=== PATIENT | female | born 1995 | race Caucasian/White ===

== ENCOUNTER 2019-01-09 23:45 | Emergency (ER) | payer OTHER ==
[2019-01-10 00:21] LABS: APPEARANCE,URINE Clear (CLEAR); BILIRUBIN,URINE Negative (NEGATIVE); COLOR,URINE Dark Yellow (YELLOW); GLUCOSE, URINE (UA) Negative (NEGATIVE); KETONES,URINE Negative (NEGATIVE); LEUKOCYTE ESTERASE ,URINE Large (NEGATIVE); NITRATE,URINE Positive (NEGATIVE); OCCULT BLOOD,URINE Negative (NEGATIVE); PH,URINE 5.5 (5.0-8.0); PROTEIN,URINE Negative (NEGATIVE)
[2019-01-10] MEDS ORDERED: ONDANSETRON ODT 4 MG TAB ONE (00:21)
[2019-01-10] MEDS ORDERED: MORPHINE SULFATE 5 MG/ML VIAL ONE (00:23)
[2019-01-10 00:30] LABS: HCG,QUAL RESULT NEGATIVE (NEGATIVE)
[2019-01-10 00:32] LABS: BACTERIA,URINE Few /HPF (None Seen); RBC,URINE 0-1 /HPF (0-1)
[2019-01-10] MEDS ORDERED: CEFTRIAXONE SODIUM 1 GM ONE (01:22)
[2019-01-10] MEDS ORDERED: LIDOCAINE HCL-MPF 1% 2ML VIAL ONE (01:22)
== END 2019-01-10 01:49 | disposition home or self-care (01) ==
LOC: EDH 23:45
DX: N39.0 Urinary tract infection, site not specified (principal); Z88.8 Allergy status to other drugs, medicaments and biological substances; Z72.0 Tobacco use
CPT/HCPCS: 81001; 81025; 87088; 96372 ×2; 99284; J0696; J2270; J3490

== ENCOUNTER 2019-04-21 11:56 | Emergency (ER) | payer OTHER ==
[2019-04-21] MEDS ORDERED: SODIUM CHLORIDE 0.9% 1000ML 1,000 ML IV ONE (12:15)
[2019-04-21] MEDS ORDERED: METOCLOPRAMIDE 10 MG/2 ML VIAL ONE (12:15)
[2019-04-21 12:22] LABS: BASOPHILS % (AUTO) 0.3 % (0.0-5.0); EOSINOPHILS % (AUTO) 0.4 % (0.0-8.0); HEMATOCRIT 38.6 % (36-48); LYMPHOCYTES % (AUTO) 21.4 % (21.0-51.0); MEAN CORPUSCULAR HEMOGLOBIN 30.4 pg (27.0-33.0); MEAN CORPUSCULAR HGB CONC 34.5 g/dL (32.0-36.0); MEAN CORPUSCULAR VOLUME 88.1 fL (79-99); MONOCYTES % (AUTO) 5.4 % (3.0-13.0); NEUTROPHILS % (AUTO) 71.9 % (40.0-77.0); PLATELET COUNT (AUTO) 225 K/uL (130-400); RED BLOOD CELL COUNT(AUTO) 4.38 MIL/uL (4.00-5.50)
[2019-04-21 12:28] LABS: CREATININE 0.6 mg/dL (0.5-1.5); POTASSIUM 3.6 mmol/L (3.5-5.1)
[2019-04-21 12:33] LABS: ALBUMIN 3.3 g/dL (3.5-5.0); BILIRUBIN,TOTAL 0.5 mg/dL (0.2-1.0); TOTAL PROTEIN, SERUM 7.1 g/dL (6.0-8.3)
[2019-04-21] MEDS ORDERED: CLON0.5T4 PO (22:02)
== END 2019-04-21 13:25 | disposition home or self-care (01) ==
LOC: EDH 11:56
DX: O21.0 Mild hyperemesis gravidarum (principal); Z3A.13 13 weeks gestation of pregnancy; Z87.891 Personal history of nicotine dependence; Z88.8 Allergy status to other drugs, medicaments and biological substances
CPT/HCPCS: 36415; 80053; 85025; 96361; 96374; 99284; J2765; J7030

== ENCOUNTER 2019-04-21 20:05 | Observation (INO) | payer OTHER, MEDICAID ==
[~2019-04-21] VITALS: Ht 172.7 cm; Wt 63.0 kg
[2019-04-21] MEDS ORDERED: PROMETHAZINE HCL 25 MG/ML 1ML AMPULE IM PRN (20:30)
[2019-04-21] MEDS ORDERED: ONDANSETRON 4 MG TABLET PO PRN (20:30)
[2019-04-21 21:00] VITALS: BP 106/61
[2019-04-21] MEDS ORDERED: PANTOPRAZOLE SODIUM 40 MG TABLET.DR PO SCH (21:00)
--- NOTE | 2019-04-21 21:00 | NUR ---
admitted Assisted patient to [facility]. Assisted to BR to change. Assisted to bed. Siderail up and bed down. Call bed in raech. Instructed on use. Instructed on plan of care. emesis basin given. IV start to Rt wrist. LR infusing @ 150cc/hr.
[2019-04-21] MEDS ORDERED: ACETAMINOPHEN 325 MG TAB PO PRN (21:15)
[2019-04-21] MEDS ORDERED: ACETAMINOPHEN 325 MG TAB ONE (21:37)
[2019-04-21] MEDS: LACTATED RINGERS 1000ML 1,000 ML IV PRN (21:42)
[2019-04-21] MEDS ORDERED: CLON0.5T4 PO (22:02)
[2019-04-21] MEDS ORDERED: PANTOPRAZOLE SODIUM 40 MG TABLET.DR ONE (22:14)
[2019-04-21 22:47] LABS: AMPHET/METH SCREEN,URINE NEGATIVE (NEGATIVE); BARBITURATE SCREEN, URINE NEGATIVE (NEGATIVE); BENZODIAZEPINES SCREEN,URINE NEGATIVE (NEGATIVE); CANNABINOID SCREEN,URINE NEGATIVE (NEGATIVE); COCAINE SCREEN,URINE NEGATIVE (NEGATIVE); OPIATE SCREEN,URINE NEGATIVE (NEGATIVE); PHENCYCLIDINE SCREEN,URINE NEGATIVE (NEGATIVE)
[2019-04-21 22:55] VITALS: BP 100/58
[2019-04-22] MEDS: LACTATED RINGERS 1000ML 1,000 ML IV PRN ×2 (00:55→07:42)
[2019-04-22 03:00] VITALS: BP 80/45
[2019-04-22 08:25] VITALS: BP 90/66
[2019-04-22] MEDS ORDERED: PANTOPRAZOLE 40 MG/VIAL IVP SCH (09:00)
[2019-04-22] MEDS ORDERED: PANTOPRAZOLE SODIUM 40 MG TABLET.DR PO SCH (09:00)
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
[2019-04-22 12:00] VITALS: BP 90/59
[2019-04-22 16:00] VITALS: BP 96/72
== END 2019-04-22 17:00 | disposition home or self-care (01) ==
LOC: WSH 20:27 → INTOOBSV 20:27
PROVIDERS: ADMIT Obstetrics & Gynecology; ATTEND Obstetrics & Gynecology
DX: O21.0 Mild hyperemesis gravidarum (principal); Z3A.13 13 weeks gestation of pregnancy
CPT/HCPCS: 36415; 80053; 80305; 85025; 96361 ×3; 96372; 96374; C9113; G0378 ×20; J2550; J2765; J7030; J7120 ×3

== ENCOUNTER 2019-07-11 23:02 | Observation (INO) | payer OTHER, MEDICAID ==
[~2019-07-11] VITALS: Ht 172.7 cm; Wt 67.6 kg
[~2019-07-11 23:02] MED LIST: CLON0.5T4 PO
[2019-07-11] MEDS ORDERED: PREN1TAB80 PO (23:17)
[2019-07-12 00:03] LABS: APPEARANCE,URINE Cloudy (CLEAR); BILIRUBIN,URINE Negative (NEGATIVE); COLOR,URINE Yellow (YELLOW); GLUCOSE, URINE (UA) Negative (NEGATIVE); KETONES,URINE Negative (NEGATIVE); LEUKOCYTE ESTERASE ,URINE Trace (NEGATIVE); NITRATE,URINE Negative (NEGATIVE); OCCULT BLOOD,URINE Negative (NEGATIVE); PH,URINE 5.5 (5.0-8.0); PROTEIN,URINE Trace mg/dL (NEGATIVE)
[2019-07-12 00:09] LABS: RBC,URINE None Seen /HPF (0-1)
[2019-07-12 00:10] LABS: AMPHET/METH SCREEN,URINE NEGATIVE (NEGATIVE); BACTERIA,URINE Moderate /HPF (None Seen); BARBITURATE SCREEN, URINE NEGATIVE (NEGATIVE); BENZODIAZEPINES SCREEN,URINE POSITIVE (NEGATIVE); CANNABINOID SCREEN,URINE POSITIVE (NEGATIVE); COCAINE SCREEN,URINE NEGATIVE (NEGATIVE); OPIATE SCREEN,URINE NEGATIVE (NEGATIVE); PHENCYCLIDINE SCREEN,URINE NEGATIVE (NEGATIVE); SQUAMOUS EPITHELIAL CELL,UR Moderate /HPF (0-2)
[2019-07-12] MEDS ORDERED: CEFTRIAXONE SODIUM 1 GM IVP ONE (00:30)
[2019-07-12] MEDS ORDERED: LACTATED RINGERS 1000ML IV ONE (00:30)
[2019-07-12] MEDS ORDERED: LACTATED RINGERS 1000ML 1,000 ML IV ONE (00:42)
[2019-07-12] MEDS ORDERED: CEFTRIAXONE SODIUM 1 GM ONE (00:43)
== END 2019-07-12 02:25 | disposition home or self-care (01) ==
LOC: EDH 23:02 → LDH 23:03
PROVIDERS: ADMIT Obstetrics & Gynecology; ATTEND Obstetrics & Gynecology
DX: O42.912 Preterm premature rupture of membranes, unspecified as to length of time between rupture and onset of labor, second trimester (principal); O36.8120 Decreased fetal movements, second trimester, not applicable or unspecified; R10.30 Lower abdominal pain, unspecified; Z3A.24 24 weeks gestation of pregnancy
CPT/HCPCS: 80305; 81001; 87088; 99284; G0378 ×3; J0696; J7120 ×2; 96360

== ENCOUNTER 2019-10-18 11:32 | Observation (INO) | payer OTHER, MEDICAID ==
[~2019-10-18] VITALS: Ht 172.7 cm; Wt 79.4 kg
[~2019-10-18 11:32] MED LIST changes: +PREN1TAB80 PO
[2019-10-18 12:19] LABS: APPEARANCE,URINE Clear (CLEAR); BILIRUBIN,URINE Negative (NEGATIVE); COLOR,URINE Yellow (YELLOW); GLUCOSE, URINE (UA) Negative (NEGATIVE); KETONES,URINE Negative (NEGATIVE); LEUKOCYTE ESTERASE ,URINE Trace (NEGATIVE); NITRATE,URINE Negative (NEGATIVE); OCCULT BLOOD,URINE Moderate (NEGATIVE); PROTEIN,URINE Negative (NEGATIVE)
[2019-10-18 12:21] VITALS: BP 95/54
[2019-10-18 12:34] LABS: BACTERIA,URINE Moderate /HPF (None Seen); RBC,URINE 0-1 /HPF (0-1); SQUAMOUS EPITHELIAL CELL,UR Moderate /HPF (0-2)
[2019-10-18] MEDS ORDERED: LACTATED RINGERS 1000ML 1,000 ML IV ONE (13:13)
[2019-10-18] MEDS ORDERED: LACTATED RINGERS 1000ML 1,000 ML IV SCH (13:15)
[2019-10-18] MEDS ORDERED: TERBUTALINE SULFATE VIAL 1MG/ML SQ ONE (14:09)
[2019-10-18] MEDS ORDERED: TERBUTALINE SULFATE VIAL 1MG/ML SQ PRN (14:15)
[2019-10-20] MEDS ORDERED: PREN1TAB80 PO (00:11)
== END 2019-10-18 15:55 | disposition home or self-care (01) ==
LOC: EDH 11:32 → LDH 11:55
PROVIDERS: ADMIT Obstetrics & Gynecology; ATTEND Obstetrics & Gynecology
DX: O62.9 Abnormality of forces of labor, unspecified (principal); O42.92 Full-term premature rupture of membranes, unspecified as to length of time between rupture and onset of labor; Z3A.39 39 weeks gestation of pregnancy
CPT/HCPCS: 81001; 87088; 96360; 96361; 99284; G0378 ×3; J3105; J7120 ×3

== ENCOUNTER 2019-10-19 22:53 | Inpatient (IN) | payer OTHER, MEDICAID ==
[~2019-10-19] VITALS: Ht 172.7 cm; Wt 77.6 kg
[2019-10-19 23:08] VITALS: BP 119/76
[2019-10-19 23:40] LABS: APPEARANCE,URINE Clear (CLEAR); BILIRUBIN,URINE Negative (NEGATIVE); COLOR,URINE Yellow (YELLOW); GLUCOSE, URINE (UA) Negative (NEGATIVE); KETONES,URINE 40 mg/dL (NEGATIVE); LEUKOCYTE ESTERASE ,URINE Trace (NEGATIVE); NITRATE,URINE Negative (NEGATIVE); OCCULT BLOOD,URINE Nonhemolyzed Trace (NEGATIVE); PH,URINE 5.5 (5.0-8.0); PROTEIN,URINE Negative (NEGATIVE)
[2019-10-19] MEDS: LACTATED RINGERS 1000ML 1,000 ML IV PRN (23:45)
[2019-10-19 23:46] LABS: BACTERIA,URINE Few /HPF (None Seen); MUCUS,URINE Few LPF (None Seen); SQUAMOUS EPITHELIAL CELL,UR Moderate /HPF (0-2)
[2019-10-19 23:47] LABS: AMPHET/METH SCREEN,URINE NEGATIVE (NEGATIVE); BARBITURATE SCREEN, URINE NEGATIVE (NEGATIVE); BENZODIAZEPINES SCREEN,URINE NEGATIVE (NEGATIVE); CANNABINOID SCREEN,URINE NEGATIVE (NEGATIVE); COCAINE SCREEN,URINE NEGATIVE (NEGATIVE); OPIATE SCREEN,URINE NEGATIVE (NEGATIVE); PHENCYCLIDINE SCREEN,URINE NEGATIVE (NEGATIVE)
[2019-10-20] MEDS ORDERED: PREN1TAB80 PO ×2 (00:11)
[2019-10-20] MEDS: LACTATED RINGERS 1000ML 1,000 ML IV PRN ×2 (00:36→03:30)
[2019-10-20] MEDS ORDERED: LACTATED RINGERS 1000ML 1,000 ML IV PRN (00:55)
[2019-10-20] MEDS ORDERED: EPHEDRINE SULFATE 50 MG/ML AMPULE IVP PRN (01:15)
[2019-10-20] MEDS ORDERED: LACTATED RINGERS 500 ML 500 ML IV PRN (01:15)
[2019-10-20] MEDS ORDERED: NALOXONE HCL 0.4 MG/1 ML ML IV PRN (01:15)
[2019-10-20 01:18] LABS: HEMATOCRIT 39.7 % (36-48); MEAN CORPUSCULAR HEMOGLOBIN 29.4 pg (27.0-33.0); MEAN CORPUSCULAR HGB CONC 33.8 g/dL (32.0-36.0); MEAN CORPUSCULAR VOLUME 87.1 fL (79-99); RED BLOOD CELL COUNT(AUTO) 4.56 MIL/uL (4.00-5.50); RED CELL DISTRIBUTION WIDTH 12.4 % (11.0-15.5); WHITE BLOOD COUNT (AUTO) 11.7 K/uL (4.8-10.8)
[2019-10-20] MEDS ORDERED: FENTANYL CITRATE PF 50 MCG/1 ML 2ML VIAL ONE (01:42)
[2019-10-20] MEDS: ROPIVACAINE 0.2% 100ML VIAL 100 ML EP SCH ×2 (02:00→19:05)
[2019-10-20] MEDS ORDERED: OXYTOCIN-LR 20 UNITS/1000 ML 1,000 ML IV ONE ×2 (05:20→17:27)
[2019-10-20] MEDS ORDERED: OXYTOCIN 10 USP UNITS/ML 20 UNIT in LACTATED RINGERS 1000ML 1,000 ML IV SCH (06:00)
[2019-10-20] MEDS ORDERED: LIDOCAINE HCL 1% 20 ML VIAL ONE (17:21)
[2019-10-20] MEDS ORDERED: METHYLERGONOVINE MALEATE 0.2 MG/1 ML ML ONE (17:21)
[2019-10-20] MEDS: OXYTOCIN-LR 20 UNITS/1000 ML 1,000 ML IV SCH ×2 (18:53→21:45)
[2019-10-20] MEDS ORDERED: ACETAMINOPHEN 325 MG TAB PO PRN (19:15)
[2019-10-20] MEDS ORDERED: MEASLES/MUMPS/RUBELLA VACCINE, LIVE 0.5 ML/VIAL SQ PRN (19:15)
[2019-10-20] MEDS ORDERED: BENZOCAINE/LANOLIN/ALOE VERA 60 ML AEROSOL TP PRN (19:15)
[2019-10-20] MEDS ORDERED: DIPH,PERTUSS(ACELL),TET VAC/PF 0.5 ML VIAL IM PRN (19:15)
[2019-10-20] MEDS ORDERED: ACETAMINOPHEN-CODEINE 300/30MG TAB PO PRN (19:15)
[2019-10-20] MEDS ORDERED: WITCH HAZEL 1 PAD TP PRN (19:15)
[2019-10-20] MEDS ORDERED: LANOLIN 30GM OINTMENT TP PRN (19:15)
[2019-10-20] MEDS: DOCUSATE SODIUM 100 MG CAP PO SCH (19:54)
[2019-10-20] MEDS: IBUPROFEN 600 MG TABLET PO PRN (19:55)
[2019-10-20 21:53] VITALS: BP 126/74
--- NOTE | 2019-10-20 23:13 | NUR ---
Discharge care EXITCARE instructions given & reviewing with pt; all questions answered, pt restates information on s/s to report to provider or to return to emergency room for evaluation. Instructing & reinforcing teaching on depression s/s, encouraging to report to md for evaluation if experiencing s/s depression/anxiety. Reinforcing teaching on normal vaginal bleeding that subsides with each day; instructing to report increase vaginal bleeding, blood clots, lower abd cramping that does not subside with medications or foul smelling vaginal discharge. Instructing to avoid sexual intercourse while bleeding due to increase risk for infection. Pt voices understanding & agrees to instructions. Explaining TDAP vaccine & reading handout; Pt agrees to vaccine. Addendum: 10/20/19 at 2322 by JASMYN HAND RN RN Amended: Links added.
[2019-10-21] VITALS (7 sets, daily range): BP systolic 92–119; BP diastolic 51–76
--- NOTE | 2019-10-21 00:30 | NUR ---
Pt reports discomfort to perineum, noted increased swelling to left lower labia majora, palpates soft with slight redness noted. Pt requesting tylenol #3 tablets for pain, rating discomfort at 5 of 10. Addendum: 10/21/19 at 0123 by JASMYN HAND RN RN Amended: Links added.
--- NOTE | 2019-10-21 00:35 | NUR ---
Explaining tylenol #3 tab for pain desired effects & possible common side effects, pt voices understanding, states "i have taken it before".
--- NOTE | 2019-10-21 01:37 | NUR ---
Assisting to bathroom, pt reports perineal soreness remains "but is less", offering to reapply senait ice pack after voiding, pt agrees. Addendum: 10/21/19 at 0138 by JASMYN HAND RN RN Amended: Links added.
--- NOTE | 2019-10-21 01:39 | NUR ---
Explaining normal changes after , perineal pain & swelling common after vaginal delivery; informing of s/s of hematoma, pt voices understanding, agrees to report increase in perineal pressure or pain. Addendum: 10/21/19 at 0204 by JASMYN HAND RN RN Amended: Links added.
[2019-10-21] MEDS: IBUPROFEN 600 MG TABLET PO PRN ×3 (02:20→18:19)
--- NOTE | 2019-10-21 02:29 | NUR ---
Pt denies pain or discomfort at present, now. States "the ice pack is not cold anymore", agrees to removal. Senait ice pack removed, edema to labia majora decreased. Encouraging pt to report discomfort and will replace senait ice pack, pt agrees to plan. Addendum: 10/21/19 at 0232 by JASMYN HAND RN RN Amended: Links added.
--- NOTE | 2019-10-21 04:30 | NUR ---
Pt reports tolerable discomfort to perineum, denies cramping at present. Reinforcing teaching on increasing fluid intake & to continue freq urination to minimize uterine cramping; Instructing to report any concerns or problems, pt voices understanding & agrees to plan.
[2019-10-21 07:13] LABS: HEMATOCRIT 37.8 % (36-48); MEAN CORPUSCULAR HEMOGLOBIN 29.2 pg (27.0-33.0); MEAN CORPUSCULAR HGB CONC 33.3 g/dL (32.0-36.0); MEAN CORPUSCULAR VOLUME 87.7 fL (79-99); RED BLOOD CELL COUNT(AUTO) 4.31 MIL/uL (4.00-5.50); RED CELL DISTRIBUTION WIDTH 12.3 % (11.0-15.5); WHITE BLOOD COUNT (AUTO) 13.2 K/uL (4.8-10.8)
--- NOTE | 2019-10-21 07:35 | NUR ---
PATIENT'S LABIA APPEARS SWOLLEN, LEFT SIDE APPEARS MORE SWOLLEN THAN THE RIGHT, SOFT TO THE TOUCH. PATIENT STATES SHE DOES NOT FEEL PAIN AT THIS TIME. TUCKS PADS APPLIED TO THE SITE. INSTRUCTED PATIENT ON HOW TO USE TUCKS PADS, PATIENT VERBALIZED UNDERSTANDING.
[2019-10-21] MEDS: DOCUSATE SODIUM 100 MG CAP PO SCH ×2 (08:57→20:45)
--- NOTE | 2019-10-21 09:45 | NUR ---
SS Consult for HX of depression, anxiety & Previous +UDS GOLDEN met with pt. who is calm, cooperative and reports happy as she is holding her baby. Pt. is single and resides with SHAWN Davis and his family. 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 Pt. reported a strong support system among her parents, sister, FOB and his family; all with whom she credits as being helpful upon discharge. Pt. reported a history of anxiety and depression since 5th grade and was under the services of psychiatrist and therapist/counselor for years until she completed her treatment. Pt. stated that she was taught relaxation techniques and utilizes them as needed. Pt. admitted to using anti-anxiety meds and marijuana in June and stated that she has not used since. SW educated pt. on risks of using illicit substances including mandated reporting to CPS by anyone in the community who suspects that she is using; pt. verbalized an understanding. Pt. denied any use of etoh. Pt. denied any smokers in the home. Pt. denied any current signs/symptoms of depression or anxiety. Pt. denied any thoughts of self harm and/or harm to others. Education provided on PPD/signs, symptoms and pt. voiced she was educated by nurse as well. Benefits in place include [employer] Insurance under her parents;carseat in place. All utilities reportedly connected in the home and family provides transportation. Pt. was provided with list of community resources/hotlines for Anxiety, Depression,PPD; pt. reported she also has contact info. Pt. voiced no SS needs or concerns. Pt. and BG to be d/c'd home when medically cleared. Addendum: 10/21/19 at 1054 by BROCK BEY Amended: Links added.
--- NOTE | 2019-10-21 10:15 | NUR ---
PATIENT RESTING WITH EYES CLOSED, CHEST RISING AND FALLING IN NORMAL PATTERN. BABY NOT PRESENT IN ROOM AT THIS TIME.
--- NOTE | 2019-10-21 14:35 | NUR ---
ASSISTED PATIENT IN LATCHING BABY TO RIGHT BREAST SUCCESSFULLY. CALL LIGHT LEFT IN REACH, ADVISED PATIENT TO CALL WITH ANY NEEDS OR CONCERNS.
[2019-10-21 20:08] LABS: HEPATITIS Bs ANTIGEN SCREEN P Negative (Negative)
[2019-10-22 03:00] VITALS: BP 98/60
[2019-10-22] MEDS: IBUPROFEN 600 MG TABLET PO PRN (06:27)
[2019-10-22 07:29] VITALS: BP 103/57
[2019-10-22] MEDS: DOCUSATE SODIUM 100 MG CAP PO SCH (08:58)
--- NOTE | 2019-10-22 12:55 | NUR ---
PATIENT LEFT UNIT VIA WHEELCHAIR WITH BABY IN ARMS. PERSONAL VEHICLE USED FOR TRANSPORTATION ACCOMPANIED BY , BABY SECURE IN CARSEAT. NO COMPLAINTS OR CONCERNS ADDRESSED FROM PATIENT ON DISCHARGE.
== END 2019-10-22 12:55 | disposition home or self-care (01) | DRG 806 ==
LOC: EDH 22:53 → OBSVTOIN 23:07 → LDH 23:07 → WSH 10-20 21:35
PROVIDERS: ADMIT Obstetrics & Gynecology; ATTEND Obstetrics & Gynecology
PROC: 10E0XZZ Delivery of Products of Conception, External Approach (ICD-10-PCS; principal; 2019-10-20)
PROC: 0UQMXZZ Repair Vulva, External Approach (ICD-10-PCS; 2019-10-20)
PROC: 0UQGXZZ Repair Vagina, External Approach (ICD-10-PCS; 2019-10-20)
PROC: 3E0R3BZ Introduction of Anesthetic Agent into Spinal Canal, Percutaneous Approach (ICD-10-PCS; 2019-10-20)
PROC: 00HU33Z Insertion of Infusion Device into Spinal Canal, Percutaneous Approach (ICD-10-PCS; 2019-10-20)
PROC: 3E0234Z Introduction of Serum, Toxoid and Vaccine into Muscle, Percutaneous Approach (ICD-10-PCS; 2019-10-20)
PROC: 3E0134Z Introduction of Serum, Toxoid and Vaccine into Subcutaneous Tissue, Percutaneous Approach (ICD-10-PCS; 2019-10-20)
DX: O77.0 Labor and delivery complicated by meconium in amniotic fluid (principal); O71.4 Obstetric high vaginal laceration alone; Z37.0 Single live birth; O69.81X0 Labor and delivery complicated by cord around neck, without compression, not applicable or unspecified; O99.62 Diseases of the digestive system complicating childbirth; K21.9 Gastro-esophageal reflux disease without esophagitis; O99.52 Diseases of the respiratory system complicating childbirth; J45.909 Unspecified asthma, uncomplicated; O71.82 Other specified trauma to perineum and vulva; Z3A.39 39 weeks gestation of pregnancy; Z23 Encounter for immunization
CPT/HCPCS: 36415; 76815; 80305; 81001; 85027; 86592; 86850; 86900; 86901; 87340; 90715; A4314; G0378; J2210; J2590; J2795; J3010; J7120

== ENCOUNTER 2020-01-20 20:13 | Emergency (ER) | payer OTHER, MEDICAID ==
[2020-01-20] MEDS ORDERED: ACETAMINOPHEN 325 MG TAB ONE (20:47)
[2020-01-20 20:59] LABS: BASOPHILS % (AUTO) 0.2 % (0.0-5.0); EOSINOPHILS % (AUTO) 0.2 % (0.0-8.0); HEMATOCRIT 42.6 % (36-48); LYMPHOCYTES % (AUTO) 15.2 % (21.0-51.0); MEAN CORPUSCULAR HEMOGLOBIN 29.1 pg (27.0-33.0); MEAN CORPUSCULAR HGB CONC 33.8 g/dL (32.0-36.0); MEAN CORPUSCULAR VOLUME 86.1 fL (79-99); MONOCYTES % (AUTO) 5.3 % (3.0-13.0); NEUTROPHILS % (AUTO) 78.9 % (40.0-77.0); PLATELET COUNT (AUTO) 250 K/uL (130-400); RED BLOOD CELL COUNT(AUTO) 4.95 MIL/uL (4.00-5.50); RED CELL DISTRIBUTION WIDTH 12.4 % (11.0-15.5); WHITE BLOOD COUNT (AUTO) 9.9 K/uL (4.8-10.8)
[2020-01-20] MEDS ORDERED: LORAZEPAM 0.5 MG TABLET ONE (20:59)
[2020-01-20 21:08] LABS: CREATININE 0.8 mg/dL (0.5-1.5); POTASSIUM 3.5 mmol/L (3.5-5.1)
[2020-01-20 21:14] LABS: ALBUMIN 4.3 g/dL (3.5-5.0); BILIRUBIN,TOTAL 0.5 mg/dL (0.2-1.0); TOTAL PROTEIN, SERUM 8.3 g/dL (6.0-8.3)
[2020-01-20 21:16] LABS: APPEARANCE,URINE CLOUDY (CLEAR); BILIRUBIN,URINE SMALL (NEGATIVE); COLOR,URINE YELLOW (YELLOW); GLUCOSE, URINE (UA) NEGATIVE (NEGATIVE); KETONES,URINE 15 mg/dL (NEGATIVE); LEUKOCYTE ESTERASE ,URINE SMALL (NEGATIVE); NITRATE,URINE NEGATIVE (NEGATIVE); OCCULT BLOOD,URINE LARGE (NEGATIVE); PROTEIN,URINE 100 mg/dL (NEGATIVE); UROBILINOGEN,URINE 0.2 mg/dL (0.2-1.0)
[2020-01-20] MEDS ORDERED: ONDANSETRON HCL 4 MG/2 ML VIAL ONE (21:23)
[2020-01-20] MEDS ORDERED: LORAZEPAM 2 MG/ML 1 ML VIAL ONE (21:24)
[2020-01-20 21:25] LABS: AMPHET/METH SCREEN,URINE NEGATIVE (NEGATIVE); BACTERIA,URINE Few /HPF (None Seen); BARBITURATE SCREEN, URINE NEGATIVE (NEGATIVE); BENZODIAZEPINES SCREEN,URINE POSITIVE (NEGATIVE); CANNABINOID SCREEN,URINE POSITIVE (NEGATIVE); COCAINE SCREEN,URINE NEGATIVE (NEGATIVE); OPIATE SCREEN,URINE NEGATIVE (NEGATIVE); PHENCYCLIDINE SCREEN,URINE NEGATIVE (NEGATIVE); SQUAMOUS EPITHELIAL CELL,UR Moderate /HPF (0-2)
[2020-01-20 21:27] LABS: WBC,URINE 26-50 /HPF (0-1)
[2020-01-20 21:28] LABS: TRANSITIONAL EPI CELLS,URINE Rare /HPF (None Seen)
[2020-01-20 21:50] LABS: HCG,QUAL RESULT NEGATIVE (NEGATIVE)
== END 2020-01-20 23:32 | disposition home or self-care (01) ==
LOC: EDH 20:13
DX: R56.9 Unspecified convulsions (principal); R55 Syncope and collapse; N39.0 Urinary tract infection, site not specified; F41.9 Anxiety disorder, unspecified; Z88.8 Allergy status to other drugs, medicaments and biological substances
CPT/HCPCS: 36415; 70450; 72125; 80053; 80305; 81001; 81025; 82550; 82948; 84484; 85025; 87077; 87088; 87186; 93005; 96361; 96372; 96374; 99285; J2060; J2405

== ENCOUNTER 2022-08-29 12:48 | Emergency (ER) | payer BC, MEDICAID ==
[~2022-08-29] VITALS: Ht 172.7 cm; Wt 68.0 kg
[2022-08-29 12:50] VITALS: BP 116/56
[2022-08-29] MEDS ORDERED: LORA10TA7 PO (13:40)
[2022-08-29] MEDS ORDERED: IBUP-2070 PO (13:40)
[2022-08-29] MEDS ORDERED: IBUPROFEN 600 MG TABLET PO ONE (14:00)
== END 2022-08-29 14:04 | disposition home or self-care (01) ==
LOC: EDH 12:48
DX: J02.8 Acute pharyngitis due to other specified organisms (principal); B97.89 Other viral agents as the cause of diseases classified elsewhere; F41.9 Anxiety disorder, unspecified; J45.909 Unspecified asthma, uncomplicated; F32.A Depression, unspecified; Z20.822 Contact with and (suspected) exposure to COVID-19
CPT/HCPCS: 99283; 87635; 87880; 87804 ×2; C9803

== ENCOUNTER 2023-05-02 19:50 | Emergency (ER) | payer BC, MEDICAID ==
[~2023-05-02] VITALS: Ht 172.7 cm; Wt 73.0 kg
[~2023-05-02 19:50] MED LIST changes: +IBUP-2070 PO; +LORA10TA7 PO
[2023-05-02 20:31] LABS: RAPID GROUP A STREP negative (NEGATIVE)
[2023-05-02 20:36] LABS: SARS-CoV-2, RNA, NAAT NEGATIVE SARS CoV-2 (NEGATIVE)
[2023-05-02 20:39] LABS: APPEARANCE,URINE CLOUDY (CLEAR); BILIRUBIN,URINE NEGATIVE (NEGATIVE); COLOR,URINE YELLOW (YELLOW); GLUCOSE, URINE (UA) NEGATIVE (NEGATIVE); KETONES,URINE >=80 mg/dL (NEGATIVE); LEUKOCYTE ESTERASE ,URINE NEGATIVE Leu/uL (NEGATIVE); NITRATE,URINE NEGATIVE (NEGATIVE); OCCULT BLOOD,URINE NEGATIVE (NEGATIVE); PROTEIN,URINE 50 mg/dL (NEGATIVE); UROBILINOGEN,URINE 0.2 mg/dL (0.2-1.0)
[2023-05-02 20:41] LABS: ADD UA MICROSCOPIC YES; INFLUENZA TYPE A Negative For Type A (NEGATIVE); INFLUENZA TYPE B Negative For Type B (NEGATIVE)
[2023-05-02 20:43] LABS: BACTERIA,URINE FEW /HPF (None Seen); MUCUS,URINE FEW LPF (None Seen); SQUAMOUS EPITHELIAL CELL,UR FEW /HPF (0-2)
[2023-05-02] MEDS: 0.9%NACL 1000ML 1,000 ML IV ONE (20:45)
[2023-05-02] MEDS: ONDANSETRON 4MG INJ IVP ONE (20:45)
[2023-05-02 21:16] LABS: BASOPHILS # (AUTO) 0.03 K/uL (0.00-0.20); BASOPHILS % (AUTO) 0.3 % (0.0-5.0); EOSINOPHILS # (AUTO) 0.04 K/uL (0.00-0.70); EOSINOPHILS % (AUTO) 0.4 % (0.0-8.0); HEMATOCRIT 45.8 % (36-48); IMMATURE GRANULOCYTE ABSOLUTE 0.03 K/uL (0-1); LYMPHOCYTES # (AUTO) 1.8 K/uL (1.0-4.8); LYMPHOCYTES % (AUTO) 18.1 % (21.0-51.0); MEAN CORPUSCULAR HEMOGLOBIN 30.1 pg (27.0-33.0); MEAN CORPUSCULAR HGB CONC 34.1 g/dL (32.0-36.0); MEAN CORPUSCULAR VOLUME 88.2 fL (79-99); MONOCYTES # (AUTO) 0.6 K/uL (0.1-1.0); MONOCYTES % (AUTO) 5.9 % (3.0-13.0); NEUTROPHILS # (AUTO) 7.4 K/uL (1.8-7.7); PLATELET COUNT (AUTO) 239 K/uL (130-400); RED BLOOD CELL COUNT(AUTO) 5.19 MIL/uL (4.00-5.50); RED CELL DISTRIBUTION WIDTH 11.7 % (11.0-15.5); WHITE BLOOD COUNT (AUTO) 9.9 K/uL (4.8-10.8)
[2023-05-02] MEDS: FAMOTIDINE 20MG VIAL IV ONE (21:28)
[2023-05-02 21:31] LABS: CREATININE 0.8 mg/dL (0.5-1.5); POTASSIUM 3.4 mmol/L (3.5-5.1)
[2023-05-02 21:36] LABS: ALBUMIN 4.2 g/dL (3.5-5.0); BILIRUBIN,TOTAL 0.7 mg/dL (0.2-1.0); TOTAL PROTEIN, SERUM 8.7 g/dL (6.0-8.3)
[2023-05-02 22:12] VITALS: BP 117/77; PULSE 75; RESP 17; O2SAT 96
[2023-05-02] MEDS ORDERED: ONDA4TAB10 PO (22:16)
[2023-05-02] MEDS ORDERED: FAMO-136 PO (22:16)
== END 2023-05-02 22:32 | disposition home or self-care (01) ==
LOC: EDH 19:50
DX: K52.9 Noninfective gastroenteritis and colitis, unspecified (principal); R11.2 Nausea with vomiting, unspecified; F41.9 Anxiety disorder, unspecified; J45.909 Unspecified asthma, uncomplicated; F32.A Depression, unspecified; Z20.822 Contact with and (suspected) exposure to COVID-19
CPT/HCPCS: 99284; 96374; 71045; 87635; 96361; 96375; 80053; 83690; 85025; 87880; 87804 ×2; 81001; 81025; 36415; J3490; J7030; J2405

== ENCOUNTER 2023-12-18 00:33 | Emergency (ER) | payer BC, MEDICAID ==
[~2023-12-18] VITALS: Ht 170.2 cm; Wt 74.4 kg
[~2023-12-18 00:33] MED LIST changes: +FAMO-136 PO; +ONDA-243 PO
[2023-12-18 01:45] VITALS: BP 95/42; PULSE 70; RESP 16; TEMP 97.8; O2SAT 97
[2023-12-18] MEDS ORDERED: AMOX-426 PO (01:45)
== END 2023-12-18 02:06 | disposition home or self-care (01) ==
LOC: EDH 00:33
DX: K04.7 Periapical abscess without sinus (principal)
CPT/HCPCS: 41800

== ENCOUNTER 2024-07-29 11:59 | Emergency (ER) | payer BC ==
[~2024-07-29] VITALS: Ht 170.2 cm; Wt 79.4 kg
[~2024-07-29 11:59] MED LIST changes: +AMOX-426 PO
--- NOTE | 2024-07-29 13:08 | ERN ---
General Chief Complaint: Headache Stated Complaint: MIGRAINE, N/V Time Seen by MD: 12:08 Source: patient History of Present Illness Initial Comments PATIENT IS A 28-YEAR-OLD FEMALE COMING IN WITH MULTIPLE COMPLAINTS. PATIENT STATES THAT SHE HAS BEEN HAVING HEADACHES NAUSEOUSNESS ABDOMINAL PAIN FOR A COUPLE OF DAYS. PATIENT ALSO STATES THAT SHE HAS A HISTORY OF ANXIETY AND FEELS LIKE IF SHE IS A VERY ANXIOUS THE MOMENT. Allergies: Coded Allergies: quetiapine (Unverified Allergy, Unknown, 01/10/19) Home Meds Active Scripts Amoxicillin/Potassium Clav (Augmentin 500-125 Tablet) 500 Mg-125 Mg Tablet, 1 EACH PO BID for 10 Days, #20 TAB Prov:MARTHA CERRATO DO 12/18/23 Ondansetron (Ondansetron Odt) 4 Mg Tab.rapdis, 4 MG PO Q12H for nausea, #6 TAB Prov:AGUSTINA GHOSH PAC 05/02/23 Famotidine (Pepcid) 20 Mg Tablet, 20 MG PO BID, #30 TAB Prov:AGUSTINA GHOSH PAC 05/02/23 Loratadine (Loratadine) 10 Mg Tablet, 10 MG PO DAILY for 7 Days, #7 TAB Prov:ANA BORJA V [facility] 08/29/22 Ibuprofen (Ibuprofen) 600 Mg Tablet, 600 MG PO Q6H PRN for PAIN, #30 TAB Prov:ANA BORJA V [facility] 08/29/22 Reported Medications Vits W-Ca,Fe,FA(<1Mg) ( Vitamins) 1 Each Tablet, 1 EACH PO DAILY, TAB 10/20/19 Vits W-Ca,Fe,FA(<1Mg) ( Vitamins) 1 Each Tablet, 1 EACH PO DAILY, TAB 07/11/19 Clonazepam (Clonazepam) Unknown Strength Tablet, PO Q4HPRN PRN for ANXIETY/AGITATION, TAB 04/21/19 Past Medical History Past Medical History: Anxiety, Migraines Past Surgical History: None Surgical History Other: IUD ROS Dictation CONSTITUTIONAL: NO CHILLS, NO FEVER, NO WEAKNESS, NO DIAPHORESIS, NO MALAISE. HEAD/FACE: NO SIGNS OF TRAUMA. EENT: NO EYE PAIN, NO BLURRED VISION, NO TEARING, NO DOUBLE VISION, NO EAR PAIN, NO EAR DISCHARGE, NO NOSE PAIN, NO NASAL CONGESTION, NO THROAT PAIN, NO THROAT SWELLING, NO MOUTH PAIN. RESPIRATORY: NO COUGH, NO ORTHOPNEA, NO SOB, NO STRIDOR, NO WHEEZING. CARDIOVASCULAR: NO CHEST PAIN, NO EDEMA, NO PALPITATIONS, NO SYNCOPE. GASTROINTESTINAL/ABDOMINAL: NO ABDOMINAL PAIN, NO CONSTIPATION, NO DIARRHEA, NO NAUSEA, NO VOMITING. GENITOURINARY: NO ABNORMAL DISCHARGE, NO DYSURIA, NO FREQUENT URINATION, NO HEMATURIA. NO COMPLAINTS OF PAIN IN THE GENITALS. MUSCULOSKELETAL: NO BACK PAIN, NO GOUT, NO JOINT PAIN, NO JOINT SWELLING, NO MUSCLE PAIN, NO MUSCLE STIFFNESS, NO NECK PAIN. INTEGUMENTARY: NO CHANGE IN COLOR, NO CHANGE IN HAIR/NAILS, NO DRYNESS, NO LESION, NO LUMPS, NO RASH. NEUROLOGICAL/PSYCH: NO ANXIETY, NOT DEPRESSED, NO EMOTIONAL PROBLEM, NO HEADACHE, NO NUMBNESS, NO PRE-EXISTING DEFICIT, NO HISTORY OF SEIZURES, NO TREMORS, NO WEAKNESS. HEMATOLOGIC/LYMPHATIC: NOT ANEMIC, NO HISTORY OF BLOOD CLOTS, NO APPARENT BLEEDING, NO BRUISING, GLANDS NOT SWOLLEN. ALL SYSTEMS NEGATIVE, EXCEPT NOTED. Physical Exam Physical Exam Dictation VITAL SIGNS: REVIEWED. GENERAL APPEARANCE: ALERT, ORIENTED X3, NO ACUTE DISTRESS, OBESE. HEAD AND FACE: NON-TRAUMATIC. EYES: PERRL, PINK CONJUNCTIVAS, EYELID NO TRAUMA, ANTERIOR CHAMBER CLEAR. EARS: PINNAS INTACT AND NO SIGNS OF TRAUMA OR ERYTHEMA. EAR CANALS CLEAR AND NO DISCHARGE. TMS NO ERYTHEMA. NOSE: NO DISCHARGE, NO BLEEDING. OROPHARYNX: MOUTH NORMAL, TEETH NO CARIES, TONGUE PINK. PHARYNX CLEAR, NO ERYTHEMA. TONSILS NO EXUDATES, NO ABSCESSES NOTED. MUCOUS MEMBRANE MOIST. NECK: SUPPLE, NON-TENDER, NO THYROMEGALY, NO MASSES, NO JVD, NO BRUITS. BREAST: DEFERRED. CHEST: NO TENDERNESS, NO CREPITUS, NO PARADOXICAL MOVEMENT, NO RETRACTIONS. LUNGS: CLEAR, WELL-VENTILATED, SYMMETRIC, NO RALES, NO WHEEZING, NO RHONCHI, NO STRIDOR, GOOD BREATH SOUNDS BILATERALLY. HEART: REGULAR RATE, REGULAR RHYTHM, NO MURMUR, NO GALLOPS. VASCULAR: NO PERIPHERAL EDEMA. ABDOMEN: SOFT, POSITIVE BOWEL SOUNDS, NONDISTENDED, NO GUARDING, NONTENDER, NO REBOUND, NO MASSES NO HEPATOMEGALY, NO SPLENOMEGALY, NO BARNETT'S SIGN, NO HERNIAS. RECTAL: DEFERRED. GENITAL: DEFERRED. NEUROLOGICAL: NORMAL SPEECH, GROSS MOTOR FUNCTION INTACT, GROSS SENSORY FUNCTION INTACT. MUSCULOSKELETAL: NECK NONTENDER, FULL RANGE OF MOTION, BACK NONTENDER, FULL RANGE OF MOTION. EXTREMITIES: NONTENDER, FULL RANGE OF MOTION. SKIN: COLOR PINK, DRY, NO TURGOR, NO RASH, NO LACERATIONS, NO ABRASIONS, NO CONTUSIONS. LYMPHATICS: DEFERRED. Results Laboratory and Microbiology Lab and Micro Result Laboratory Tests Test 07/29/24 13:08 White Blood Count 9.5 K/uL (4.8-10.8) Red Blood Count 5.16 MIL/uL (4.00-5.50) Hemoglobin 15.4 g/dL (12.0-16.0) Hematocrit 45.8 % (36-48) Mean Corpuscular Volume 88.8 fL (79-99) Mean Corpuscular Hemoglobin 29.8 pg (27.0-33.0) Mean Corpuscular Hemoglobin Concent 33.6 g/dL (32.0-36.0) Red Cell Distribution Width 11.9 % (11.0-15.5) Platelet Count 268 K/uL (130-400) Mean Platelet Volume 9.7 fL (7.5-10.5) Immature Granulocyte % (Auto) 0.3 % (0-1) Neutrophils (%) (Auto) 77.1 % (40.0-77.0) H Lymphocytes (%) (Auto) 15.0 % (21.0-51.0) L Monocytes (%) (Auto) 6.7 % (3.0-13.0) Eosinophils (%) (Auto) 0.7 % (0.0-8.0) Basophils (%) (Auto) 0.2 % (0.0-5.0) Neutrophils # (Auto) 7.3 K/uL (1.8-7.7) Lymphocytes # (Auto) 1.4 K/uL (1.0-4.8) Monocytes # (Auto) 0.6 K/uL (0.1-1.0) Eosinophils # (Auto) 0.07 K/uL (0.00-0.70) Basophils # (Auto) 0.02 K/uL (0.00-0.20) Absolute Immature Granulocyte (auto 0.03 K/uL (0-1) Nucleated Red Blood Cells 0.0 % (0.0-0.19) Sodium Level 145 mmol/L (136-145) Potassium Level 4.3 mmol/L (3.5-5.1) Chloride Level 105 mmol/L (101-111) Carbon Dioxide Level 29 mmol/L (21-32) Blood Urea Nitrogen 12 mg/dL (7-18) Creatinine 0.6 mg/dL (0.5-1.0) Glomerular Filtration Rate Calc 125 mL/min (>90) Random Glucose 96 mg/dL (70-105) Total Calcium 9.6 mg/dL (8.5-10.1) Total Bilirubin 1.3 mg/dL (0.2-1.0) H Aspartate Amino Transf (AST/SGOT) 20 U/L (10-37) Alanine Aminotransferase (ALT/SGPT) 24 U/L (12-78) Alkaline Phosphatase 67 U/L (50-136) Total Creatine Kinase 66 U/L (21-232) # Troponin I High Sensitivity < 4 ng/L (4-50) L Total Protein 8.4 g/dL (6.0-8.3) H Albumin 4.5 g/dL (3.5-5.0) Lipase 18 U/L (16-77) Human Chorionic Gonadotropin, Quant 0 mIU/mL (0-5) MDM MDM: DIFFERENTIAL DIAGNOSIS: TENSION HEADACHE, GASTRITIS, RATIONALE: TESTS CONSIDERED AND ORDERED SECONDARY TO SHARED DECISION MAKING INCLUDE: PREVIOUS OUTSIDE RECORDS REVIEWED: OLD ER VISITS. RISK OF COMPLICATION AND/OR MORBIDITY OR MORTALITY OF PATIENT MANAGEMENT: NONE MEDICATIONS-PER MEDICATION RECONCILIATION PATIENT WILL BE DISCHARGED IN STABLE CONDITION WITH A DIAGNOSIS OF TENSION HEADACHE WITH GASTROENTERITIS. PATIENT STATES THAT SHE FREQUENTLY GETS HEADACHES ON PHYSICAL EXAM BILATERAL TRAPEZIUS MUSCLE TENDERNESS ON PALPATION CONSISTENT WITH TENSION HEADACHES AND MUSCLE STRAIN. ED Course Orders Procedure Category Date Status Time Cbc With Differential LAB 07/29/24 Complete 12:34 Comprehensive LAB 07/29/24 Complete Metabolic Panel 12:34 Troponin I High LAB 07/29/24 Complete Sensitivity 12:34 Hcg,Quantitative LAB 07/29/24 Complete 12:34 ,Urine Test LAB 07/29/24 Logged 12:34 Urinalysis Profile LAB 07/29/24 Logged 12:34 12 Lead Ekg Tracing- EKG 07/29/24 Resulted Technical 12:34 Lactated Ringers PHA 07/29/24 Complete 1000ml (Lactated 13:00 Ondansetron 4mg Inj PHA 07/29/24 Complete (Zofran 4mg Inj) 13:00 Pantoprazole 40mg Inj PHA 07/29/24 Complete (Protonix 40mg Inj 13:00 Creatine Kinase, Total LAB 07/29/24 Complete 12:34 Lipase LAB 07/29/24 Complete 12:34 Drug Screen Urine LAB 07/29/24 Logged 14:07 Current Medications Medications (Trade) Dose Ordered Sig/Maggie Route PRN Reason Start Time Stop Time Status Last Admin Dose Admin Lactated Ringer's 1,000 ml @ 0 mls/hr ONCE ONCE IV 07/29/24 13:00 07/29/24 13:01 DC 07/29/24 13:14 Ondansetron HCl (zoFRAN 4MG INJ) 4 mg ONCE ONCE IVP 07/29/24 13:00 07/29/24 13:01 DC 07/29/24 13:14 Pantoprazole Sodium (PROTonix 40MG INJ) 40 mg ONCE ONCE IVP 07/29/24 13:00 07/29/24 13:01 DC 07/29/24 13:14 Vital Signs Date Time Temp Pulse Resp B/P (MAP) Pulse Ox O2 Delivery O2 Flow Rate FiO2 07/29/24 12:00 98.4 76 16 120/77 96 Room Air* 0 21 07/29/24 12:00 98.4 76 16 120/77 96 Room Air 0 DX & DISP Disposition: Discharge Departure Impression: Primary Impression: Gastroenteritis Additional Impression: Tension headache Condition: Stable Scripts Diclofenac Sodium (Voltaren Arthritis Pain) 1 % Gel..gram. 4 GM TP TID for 7 Days, #1 TUBE Prov: KRISTINA TYLER MD 07/29/24 Additional Instructions: FOLLOW-UP WITH PRIMARY CARE PROVIDER IN 1 TO 2 DAYS. TAKE MEDICATIONS DIRECTED HERE IN THE EMERGENCY ROOM. OKAY TO CONTINUE HOME MEDICATIONS UNLESS OTHERWISE DISCUSSED DURING YOUR VISIT IN THE EMERGENCY ROOM TODAY. RETURN TO YOUR NEAREST EMERGENCY ROOM IF SYMPTOMS WORSEN OR IF THERE IS NO IMPROVEMENT. C ALL 911 IF YOU NEED IMMEDIATE ASSISTANCE. TAKE TYLENOL [id number] NEEDED AND IF NO CONTRAINDICATIONS ARE PRESENT. INCREASE ORAL HYDRATION. A WOUND CULTURE OR URINE CULTURE WAS ORDERED HERE IN THE EMERGENCY ROOM DEPARTMENT PLEASE FOLLOW-UP WITH PRIMARY CARE PROVIDER AND ADVISE THEM TO GET REPEAT PORTS FROM OUR FACILITY. IF YOU HAD ANY SAMMY WRAP/SPLINTS THAT WERE APPLIED HERE, PLEASE DO NOT REMOVE THEM UNTIL YOU SEE YOUR PRIMARY CARE OR SPECIALTY. REFERRALS: Referrals: BROCK CASSIDY MD (PCP) Time of Disposition: 15:31 KRISTINA TYLER MD July 29, 2024 13:08
[2024-07-29] MEDS: PANTOPrazole 40 MG/VIAL IVP ONE (13:14)
[2024-07-29] MEDS: LACTATED RINGERS 1000ML 1,000 ML IV ONE (13:14)
[2024-07-29] MEDS: ondanSETRON 4MG INJ IVP ONE (13:14)
[2024-07-29 13:18] LABS: BASOPHILS # (AUTO) 0.02 K/uL (0.00-0.20); BASOPHILS % (AUTO) 0.2 % (0.0-5.0); EOSINOPHILS # (AUTO) 0.07 K/uL (0.00-0.70); EOSINOPHILS % (AUTO) 0.7 % (0.0-8.0); HEMATOCRIT 45.8 % (36-48); IMMATURE GRANULOCYTE ABSOLUTE 0.03 K/uL (0-1); LYMPHOCYTES # (AUTO) 1.4 K/uL (1.0-4.8); MEAN CORPUSCULAR HEMOGLOBIN 29.8 pg (27.0-33.0); MEAN CORPUSCULAR HGB CONC 33.6 g/dL (32.0-36.0); MEAN CORPUSCULAR VOLUME 88.8 fL (79-99); MONOCYTES # (AUTO) 0.6 K/uL (0.1-1.0); MONOCYTES % (AUTO) 6.7 % (3.0-13.0); NEUTROPHILS # (AUTO) 7.3 K/uL (1.8-7.7); NEUTROPHILS % (AUTO) 77.1 % (40.0-77.0); PLATELET COUNT (AUTO) 268 K/uL (130-400); RED BLOOD CELL COUNT(AUTO) 5.16 MIL/uL (4.00-5.50); RED CELL DISTRIBUTION WIDTH 11.9 % (11.0-15.5); WHITE BLOOD COUNT (AUTO) 9.5 K/uL (4.8-10.8)
--- NOTE | 2024-07-29 13:22 | EKG ---
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
[2024-07-29 13:49] LABS: BILIRUBIN,TOTAL 1.3 mg/dL (0.2-1.0); POTASSIUM 4.3 mmol/L (3.5-5.1); TOTAL PROTEIN, SERUM 8.4 g/dL (6.0-8.3)
[2024-07-29 14:07] LABS: ALBUMIN 4.5 g/dL (3.5-5.0); CREATININE 0.6 mg/dL (0.5-1.0)
[2024-07-29] MEDS ORDERED: DICL20GE TP (15:32)
[2024-07-29 15:40] LABS: APPEARANCE,URINE CLOUDY (CLEAR); BILIRUBIN,URINE NEGATIVE (NEGATIVE); COLOR,URINE YELLOW (YELLOW); GLUCOSE, URINE (UA) NEGATIVE (NEGATIVE); KETONES,URINE 150 mg/dL (NEGATIVE); LEUKOCYTE ESTERASE ,URINE 75 Leu/uL (NEGATIVE); NITRATE,URINE NEGATIVE (NEGATIVE); OCCULT BLOOD,URINE NEGATIVE (NEGATIVE); PROTEIN,URINE 50 mg/dL (NEGATIVE); UROBILINOGEN,URINE 3 mg/dL (0.2-1.0)
[2024-07-29 15:42] LABS: ADD UA MICROSCOPIC YES
[2024-07-29 15:46] LABS: HCG,QUALITATIVE URINE NEGATIVE (NEGATIVE)
[2024-07-29 15:48] LABS: BACTERIA,URINE FEW /HPF (None Seen); MUCUS,URINE MANY LPF (None Seen); OTHER CASTS, URINE 1 /LPF (None Seen); SQUAMOUS EPITHELIAL CELL,UR MOD /HPF (0-2)
[2024-07-29 15:49] LABS: AMPHET/METH SCREEN,URINE NEGATIVE (NEGATIVE); BARBITURATE SCREEN, URINE NEGATIVE (NEGATIVE); BENZODIAZEPINES SCREEN,URINE POSITIVE (NEGATIVE); CANNABINOID SCREEN,URINE POSITIVE (NEGATIVE); COCAINE SCREEN,URINE NEGATIVE (NEGATIVE); OPIATE SCREEN,URINE NEGATIVE (NEGATIVE); PHENCYCLIDINE SCREEN,URINE NEGATIVE (NEGATIVE)
[2024-07-29 16:03] VITALS: BP 97/55; PULSE 57; RESP 16; TEMP 98.4; O2SAT 99
== END 2024-07-29 16:19 | disposition home or self-care (01) ==
LOC: EDH 11:59
DX: K52.9 Noninfective gastroenteritis and colitis, unspecified (principal); G44.209 Tension-type headache, unspecified, not intractable; F41.9 Anxiety disorder, unspecified; R10.2 Pelvic and perineal pain; M19.90 Unspecified osteoarthritis, unspecified site; Z79.899 Other long term (current) drug therapy
CPT/HCPCS: 99284; 96374; 96361; 96375; 82550; 84484; 80053; 80305; 84702; 83690; 85025; 87086; 81001; 81025; 36415; 93005; J7120; J2405; J2470

== ENCOUNTER 2024-07-29 22:51 | Emergency (ER) | payer BC ==
[~2024-07-29] VITALS: Ht 170.2 cm; Wt 78.0 kg
[~2024-07-29 22:51] MED LIST changes: +DICL20GE TP
[2024-07-29] MEDS: DiphenhydrAMINE HCL 50 MG/ML VIAL IV ONE (23:19)
[2024-07-29] MEDS: 0.9%NACL 1000ML 1,000 ML IV ONE (23:20)
[2024-07-29] MEDS: metoCLOPRAmide 10 MG/2 ML VIAL IVP ONE (23:20)
[2024-07-29] MEDS: acetaMINOPHEN 500 MG TABLET PO ONE (23:20)
--- NOTE | 2024-07-30 00:25 | ERN ---
ED Note History of Present Illness Stated Complaint: C/O HEADACHE, N X V Chief Complaint: Headache Time Seen by MD: 22:54 Time Seen by Midlevel: 22:54 Dictation: The patient is a 28-year-old female with a history of migraines who presents to the emergency department with complaints of left-sided headache that radiates to the right side onset three days ago. Patient reports nausea nonbloody vomiting. Denies any fevers, head trauma, diarrhea or constipation. Patient was seen earlier today and was diagnosed with gastroenteritis but reports headache continue. Allergies: Coded Allergies: quetiapine (Unverified Allergy, Unknown, 01/10/19) Home Meds Active Scripts Diclofenac Sodium (Voltaren Arthritis Pain) 1 % Gel..gram., 4 GM TP TID for 7 Days, #1 TUBE Prov:KRISTINA TYLER MD 07/29/24 Amoxicillin/Potassium Clav (Augmentin 500-125 Tablet) 500 Mg-125 Mg Tablet, 1 EACH PO BID for 10 Days, #20 TAB Prov:MARTHA CERRATO DO 12/18/23 Ondansetron (Ondansetron Odt) 4 Mg Tab.rapdis, 4 MG PO Q12H for nausea, #6 TAB Prov:AGUSTINA GHOSH PAC 05/02/23 Famotidine (Pepcid) 20 Mg Tablet, 20 MG PO BID, #30 TAB Prov:AGUSTINA GHOSH PAC 05/02/23 Loratadine (Loratadine) 10 Mg Tablet, 10 MG PO DAILY for 7 Days, #7 TAB Prov:ANA BORJA V [facility] 08/29/22 Ibuprofen (Ibuprofen) 600 Mg Tablet, 600 MG PO Q6H PRN for PAIN, #30 TAB Prov:ANA BORJA V [employer] 08/29/22 Reported Medications Vits W-Ca,Fe,FA(<1Mg) ( Vitamins) 1 Each Tablet, 1 EACH PO DAILY, TAB 10/20/19 Vits W-Ca,Fe,FA(<1Mg) ( Vitamins) 1 Each Tablet, 1 EACH PO DAILY, TAB 07/11/19 Clonazepam (Clonazepam) Unknown Strength Tablet, PO Q4HPRN PRN for ANXIETY/AGITATION, TAB 04/21/19 Past Medical History Past Medical History: No Pertinent History Surgical History: None Surgical History Other: IUD RN Note Reviewed/Agreed w/PFSH: Yes Review of System Dictation Constitutional: Negative for fever,chills, and weight loss Eyes: Negative for injury, pain,redness, and discharge ENT: Negative for injury,pain or swelling Cardiovascular: Negative for chest pain, palpitations, and edema Respiratory: Negative for shortness of breath, cough, and wheezing, Abdomen/GI: Negative for abdominal pain, diarrhea, and constipation positive for nausea vomiting Back: Negative for injury and pain : Negative for injury, bleeding and discharge MS/Extremity: Negative for injury and deformity Skin: Negative for rash, and discoloration Neuro: Negative for weakness, numbness, tingling, and seizure positive for headache Psych: Negative for suicide ideation, homicidal ideation, and hallucinations Initial Vital Sign VS Vital Signs Date Time Temp Pulse Resp B/P (MAP) Pulse Ox O2 Delivery O2 Flow Rate FiO2 07/29/24 22:53 98.2 84 20 103/66 97 Room Air 07/29/24 23:05 0 21 Physical Exam Dictation Vital Signs reviewed General Appearance: Alert, oriented x 3, no acute distress, well developed, nourished. Head and Face: non-traumatic. Eyes: PERRL, pink conjunctivas, eyelid no trauma, anterior chamber with arcus senilis. Ears: Pinnas intact and no signs of trauma or erythema ear canals clear and no discharge TM no erythema Nose: No discharge, no bleeding. Oropharynx: Mouth normal, tongue pink. pharynx clear,no erythema, tonsils no exudates, no abscesses noted, mucous membrane moist Neck: Supple, non-tender, no thyromegaly, no masses, no JVD, no bruits Breast:Deferred Chest:No tenderness, no crepitus, no paradoxical movement, no retractions Lungs:Clear, well-ventilated, symmetric, no rales, no wheezing, no rhonchi, no stridor, good breath sounds bilaterally Heart: Regular rate, regular rhythm, no murmur, no gallops Vascular: no peripheral edema, Abdomen: Soft, positive bowel sounds, nondistended, no guarding, nontender, no rebound, no masses no hepatomegaly, no splenomegaly, no Vicente's sign, no hernias. Rectal: Deferred Genital: Deferred Neurological: Normal speech, motor function intact, sensory function intact , upper extremities equal in strength, lower extremities equal in strength, no facial droop, no slurred speech Musculoskeletal: Neck nontender, full range of motion, back nontender, full range of motion, Extremities: nontender, full range of motion Skin: Color pink, dry, no turgor, no rash, no lacerations, no abrasions, no contusions. Lymphatic: Deferred Results (Laboratory/Radiology) Labs Reviewed?: Yes ED Course ED Course Orders Procedure Category Date Status Time 0.9%Nacl 1000ml (Ns PHA 07/29/24 Complete 1000ml) 23:30 Diphenhydramine Hcl PHA 07/29/24 Complete (Benadryl Inj) 23:30 Metoclopramide 10 PHA 07/29/24 Complete Mg/2 Ml Vial (Reglan 1 23:30 Acetaminophen 500mg PHA 07/29/24 Complete Tab (Tylenol 500mg T 23:30 Current Medications Medications (Trade) Dose Ordered Sig/Maggie Route PRN Reason Start Time Stop Time Status Last Admin Dose Admin Acetaminophen (TYLenol 500MG TAB) 1,000 mg ONCE ONCE PO 07/29/24 23:30 07/29/24 23:31 DC 07/29/24 23:20 Diphenhydramine HCl (BENAdryl INJ) 25 mg ONCE ONCE IV 07/29/24 23:30 07/29/24 23:31 DC 07/29/24 23:19 Metoclopramide HCl (regLAN 10MG IV) 10 mg ONCE ONCE IVP 07/29/24 23:30 07/29/24 23:31 DC 07/29/24 23:20 Sodium Chloride 1,000 ml @ 0 mls/hr ONCE ONCE IV 07/29/24 23:30 07/29/24 23:31 DC 07/29/24 23:20 Vital Signs Date Time Temp Pulse Resp B/P (MAP) Pulse Ox O2 Delivery O2 Flow Rate FiO2 07/30/24 00:00 98.2 59 16 91/62 100 Room Air* 0 21 07/29/24 23:05 98.4 74 18 99/55 98 Room Air* 0 21 07/29/24 22:53 98.2 84 20 103/66 97 Room Air Medical Decision Making MDM The patient is a 28-year-old female with a history of migraines who presents to the emergency department with complaints of left-sided headache that radiates to the right side onset three days ago. Patient reports nausea nonbloody vomiting. Denies any fevers, head trauma, diarrhea or constipation. Patient was seen earlier today and was diagnosed with gastroenteritis but reports headache continue. Patient received migraine IV medications and reports improving in pain. I reviewed the patient's labs from earlier today and were unremarkable. Patient continues neurologically intact. Stable vital signs. Patient agrees to be discharged and follow up with PCP for her migraine treatment. Reports she needs a refill on her medication Differential diagnosis: Electrolyte imbalance, migraine headache, dehydration Need for hospitalization: Patient does not meet criteria for hospitalization. There are no social concerns with this patient. DX & DISP Disposition: Discharge Departure Impression: Primary Impression: Headache Condition: Stable Additional Instructions: Please follow up with the primary care in 1-2 days. If symptoms worsen please return to ER. FOLLOW-UP WITH PRIMARY CARE PROVIDER IN 1 TO 2 DAYS. TAKE MEDICATIONS DIRECTED HERE IN THE EMERGENCY ROOM. OKAY TO CONTINUE HOME MEDICATIONS UNLESS OTHERWISE DISCUSSED DURING YOUR VISIT IN THE EMERGENCY ROOM TODAY. RETURN TO YOUR NEAREST EMERGENCY ROOM IF SYMPTOMS WORSEN OR IF THERE IS NO IMPROVEMENT. CALL 911 IF YOU NEED IMMEDIATE ASSISTANCE. TAKE TYLENOL OR MOTRIN [id number] NEEDED AND IF NO CONTRAINDICATIONS ARE PRESENT. INCREASE ORAL HYDRATION. A WOUND CULTURE OR URINE CULTURE WAS ORDERED HERE IN THE EMERGENCY ROOM DEPARTMENT PLEASE FOLLOW-UP WITH PRIMARY CARE PROVIDER AND ADVISE THEM TO GET REPEAT PORTS FROM OUR FACILITY. IF YOU HAD ANY SAMMY WRAP/SPLINTS THAT WERE APPLIED HERE, PLEASE DO NOT REMOVE THEM UNTIL YOU SEE YOUR PRIMARY CARE OR SPECIALTY. Referrals: BROCK CASSIDY MD (PCP) Time of Disposition: 00:24 I have reviewed the case, and I agree with, Diagnosis and Plan REBA CASSIDY July 30, 2024 00:25
[2024-07-30 00:37] VITALS: BP 103/53; PULSE 68; RESP 15; TEMP 98; O2SAT 100
== END 2024-07-30 00:42 | disposition home or self-care (01) ==
LOC: EDH 22:51
DX: R51.9 Headache, unspecified (principal); R11.2 Nausea with vomiting, unspecified; Z79.899 Other long term (current) drug therapy; Z79.1 Long term (current) use of non-steroidal anti-inflammatories (NSAID); Z88.8 Allergy status to other drugs, medicaments and biological substances
CPT/HCPCS: 99284; 96374; 96375; J1200; J7030; J2765

== ENCOUNTER 2025-02-02 01:32 | Emergency (ER) | payer BC ==
[~2025-02-02] VITALS: Ht 170.2 cm; Wt 79.4 kg
[~2025-02-02 01:32] MED LIST changes: +IBUP-1492 PO; -IBUP-2070 PO
[2025-02-02 01:33] VITALS: BP 117/74; PULSE 67; RESP 18; TEMP 97.2
--- NOTE | 2025-02-02 01:36 | NUR ---
COVID, FLU AND STREP SWABS COLLECTED AND SENT
--- NOTE | 2025-02-02 01:37 | NUR ---
UA CUP PROVIDED
[2025-02-02 02:30] LABS: RAPID GROUP A STREP negative (NEGATIVE)
[2025-02-02 02:36] LABS: SARS-CoV-2, RNA, NAAT NEGATIVE SARS CoV-2 (NEGATIVE)
[2025-02-02 02:40] LABS: INFLUENZA TYPE A Negative For Type A (NEGATIVE); INFLUENZA TYPE B Negative For Type B (NEGATIVE)
--- NOTE | 2025-02-02 03:02 | ERN ---
ED Note History of Present Illness Stated Complaint: SORE THROAT Chief Complaint: Sore Throat Time Seen by MD: 01:34 Dictation: This is a 29-year-old female who came into the ER for evaluation of severe sore throat and chest discomfort. She stated that all these symptoms have been going on for a few days and her daughter was sick initially with fevers. She developed fevers up to 103 per her report at home with severe chills and she sat in a hot tub like which actually made it worse. She went to the urgent care center this morning and she was evaluated and all the serology was negative and she was given amoxicillin. She wanted to come to the ER to get an opinion as her symptoms were still present. No sputum. Patient stated that she Google old on the Internet that she had white spots which gave an extensive differential including infectious mononucleosis and herpes and she was worried. She has been in a monogamous relationship for more than 6 years. Temperature 97.2 pulse 67 respirations 18 blood pressure 117/74 with a pulse oximetry of 99% on room air Allergies: Coded Allergies: quetiapine (Unverified Allergy, Unknown, 01/10/19) Home Meds Active Scripts Diclofenac Sodium (Voltaren Arthritis Pain) 1 % Gel..gram., 4 GM TP TID for 7 Days, #1 TUBE Prov:KRISTINA TYLER MD 07/29/24 Amoxicillin/Potassium Clav (Augmentin 500-125 Tablet) 500 Mg-125 Mg Tablet, 1 EACH PO BID for 10 Days, #20 TAB Prov:MARTHA CERRATO DO 12/18/23 Ondansetron (Ondansetron Odt) 4 Mg Tab.rapdis, 4 MG PO Q12H for nausea, #6 TAB Prov:AGUSTINA GHOSH PAC 05/02/23 Famotidine (Pepcid) 20 Mg Tablet, 20 MG PO BID, #30 TAB Prov:AGUSTINA GHOSH PAC 05/02/23 Loratadine (Loratadine) 10 Mg Tablet, 10 MG PO DAILY for 7 Days, #7 TAB Prov:ANA BORJA V [facility] 08/29/22 Ibuprofen (Ibuprofen) 600 Mg Tablet, 600 MG PO Q6H PRN for PAIN, #30 TAB Prov:ANA BORJAP 08/29/22 Reported Medications Vits W-Ca,Fe,FA(<1Mg) ( Vitamins) 1 Each Tablet, 1 EACH PO DAILY, TAB 10/20/19 Vits W-Ca,Fe,FA(<1Mg) ( Vitamins) 1 Each Tablet, 1 EACH PO DAILY, TAB 07/11/19 Clonazepam (Clonazepam) Unknown Strength Tablet, PO Q4HPRN PRN for ANXIETY/AGITATION, TAB 04/21/19 Past Medical History Past Medical History: No Pertinent History, Other Additional Past Medical Hx: ESBL, E COLI Surgical History: None Surgical History Other: IUD Family History: Negative Social History: Negative History: Not Applicable (Patient has a IUD) RN Note Reviewed/Agreed w/PFSH: Yes Review of System Dictation Constitutional: Negative for fever,chills, and weight loss Eyes: Negative for injury, pain,redness, and discharge ENT: Negative for injury,pain or swelling Cardiovascular: Negative for chest pain, palpitations, and edema Respiratory: Negative for shortness of breath, cough, and wheezing, Abdomen/GI: Negative for abdominal pain, nausea, vomiting, diarrhea, and constipation Back: Negative for injury and pain : Negative for injury, bleeding and discharge MS/Extremity: Negative for injury and deformity Skin: Negative for rash, and discoloration Neuro: Negative for headache, weakness, numbness, tingling, and seizure Psych: Negative for suicide ideation, homicidal ideation, and hallucinations Initial Vital Sign VS Vital Signs Date Time Temp Pulse Resp B/P (MAP) Pulse Ox O2 Delivery O2 Flow Rate FiO2 02/02/25 01:33 97.2 67 18 117/74 99 Room Air Physical Exam Dictation General: awake, alert, NAD generally anxious Head/Face: Normocephalic, atraumatic Eyes: PERRL, EOMI, vision at baseline ENT: oral cavity clear, TMs clear, no signs of infection, no exudate. Neck: Trachea midline, supple, no nuchal rigidity Cardiovascular: RRR, normal S1/S2, No MRGs, no JVD Respiratory: CTAB, no respiratory distress, No rales or wheezes Abdomen: Soft, non-tender, non-distended, normal bowel sounds, no guarding or rebound. Skin: Warm, dry, normal turgor, no rash MS/Extremity: Pulses equal, no cyanosis, neurovascular intact, FROM Neuro: COAx4, GCS 15, strength 5/5, CN 2-12 intact, normal cerebellar exam, normal gait, Psych: Normal behavior, mood, and affect normal Extremities-trace edema without any palpable cords, Homans sign is negative Results (Laboratory/Radiology) Laboratory/Radiology Laboratory Tests Test 02/02/25 01:34 Influenza Type A Antigen Negative For Type A Influenza Type B Antigen Negative For Type B SARS-CoV-2, RNA, NAAT NEGATIVE SARS CoV-2 Group A Streptococcus Rapid negative (NEGATIVE) Labs Reviewed?: Yes ED Course ED Course Orders Procedure Category Date Status Time Covid Rna Naat LAB 02/02/25 Complete 01:35 Influenza Type A & B, LAB 02/02/25 Complete Rapid 01:35 Rapid (Group A Strep) LAB 02/02/25 Complete 01:35 Mag/Alum/Simeth 30ml PHA 02/02/25 Complete (Maalox Plus 30ml) 04:30 Lidocaine Hcl 2% PHA 02/02/25 Complete Viscous (Lidocaine Hcl 04:30 Dicyclomine Hcl PHA 02/02/25 Complete (Bentyl 10mg/5ml 04:30 Current Medications Medications (Trade) Dose Ordered Sig/Maggie Route PRN Reason Start Time Stop Time Status Last Admin Dose Admin Al Hydroxide/Mg Hydroxide (MAALox PLUS 30ML) 30 ml ONCE ONCE PO 02/02/25 04:30 02/02/25 05:07 DC 02/02/25 05:09 Dicyclomine HCl (Bentyl 10mg/5ml Syrup) 10 mg ONCE ONCE PO 02/02/25 04:30 02/02/25 05:07 DC 02/02/25 05:09 Lidocaine HCl (Lidocaine HCl 2% Viscous) 10 ml ONCE ONCE PO 02/02/25 04:30 02/02/25 05:07 DC 02/02/25 05:09 Vital Signs Date Time Temp Pulse Resp B/P (MAP) Pulse Ox O2 Delivery O2 Flow Rate FiO2 02/02/25 01:33 97.2 67 18 117/74 99 Room Air Medical Decision Making MDM Differential diagnosis: Influenza, COVID, RSV, streptococcal pharyngitis, otitis media, acute viral syndrome This is a 29-year-old female who came into the ER for evaluation of severe sore throat and chest discomfort. She stated that all these symptoms have been going on for a few days and her daughter was sick initially with fevers. She dev eloped fevers up to 103 per her report at home with severe chills and she sat in a hot tub like which actually made it worse. She went to the urgent care center this morning and she was evaluated and all the serology was negative and she was given amoxicillin. She wanted to come to the ER to get an opinion as her symptoms were still present. No sputum. Patient stated that she Google old on the Internet that she had white spots which gave an extensive differential including infectious mononucleosis and herpes and she was worried. She has been in a monogamous relationship for more than 6 years. Temperature 97.2 pulse 67 respirations 18 blood pressure 117/74 with a pulse oximetry of 99% on room air Serology for influenza, COVID, strep pharyngitis were all negative. I have explained to the patient that serology and rapid strep test are all negative. It may simply be a viral pharyngitis and she has been taking antibiotics and I explained to her that viral pharyngitis runs its course. Responded to GI cocktail and the pain is somewhat better. Discharge to follow up with her primary care physician. Rationale: Tests considered and ordered secondary to shared decision making include: Previous outside records reviewed: Old ER visits. Risk of complication and/or morbidity or mortality of patient management: None Medications-Per medication reconciliation Need for hospitalization: Patient does not meet criteria for hospitalization. Need for emergency major/minor surgery: No There are no social concerns with this patient. Prescription drug management Prescriptions will include symptomatic care Patient's prior external medical records from other ER visits were reviewed by me as indicated. Prior testing and results from previous visits were reviewed. Prior tests were taken into account with medical decision making and resource utilization, independent historian/historians were used to obtain complete medical history. I independently interpreted the test that were performed, results were reviewed by me and considered findings on radiology if ordered. Medical management and examination interpretation discussions were had by me with other qualified healthcare professionals as indicated for the patient's care. Problem List Problem List: (1) Acute viral pharyngitis (2) Esophagitis DX & DISP Disposition: Discharge Departure Impression: Primary Impression: Acute viral pharyngitis Additional Impression: Esophagitis Condition: Stable Additional Instructions: Patient and the caregiver have been informed of all the diagnostic tests and the imaging conducted during the today's visit to the emergency room and has verbalized understanding of the results I have personally reviewed and interpreted all diagnostic exams performed here in the ER today as well as the vital signs documented by the nursing staff. The patient is now being discharged to home and should follow up with the primary care physician or the specialist as directed by the ER staff. Warm saltwater gargles, Chloraseptic throat spray Referrals: RUT TAO (PCP) DOMINICK WILEY MD Feb 02, 2025 03:02
[2025-02-02] MEDS: DICYCLOMINE HCL 10 MG/5 ML ML PO ONE (05:09)
[2025-02-02] MEDS: LIDOCAINE HCL 2% VISCOUS 15 ML UDCUP PO ONE (05:09)
[2025-02-02] MEDS: MAG/ALUM/SIMETH 30 ML UDCUP PO ONE (05:09)
== END 2025-02-02 05:21 | disposition home or self-care (01) ==
LOC: EDH 01:32
DX: J02.8 Acute pharyngitis due to other specified organisms (principal); B97.89 Other viral agents as the cause of diseases classified elsewhere; K20.90 Esophagitis, unspecified without bleeding; Z20.822 Contact with and (suspected) exposure to COVID-19
CPT/HCPCS: 87635; 87804; 87880; 99283